=== PATIENT | male | born 1960 | race American Indian/Alaskan Native ===

== ENCOUNTER 2021-01-21 23:19 | Inpatient (IN) | payer OTHER ==
[2021-01-21] MEDS ORDERED: ALBUTEROL 2.5 MG/3 ML NEBU IH ONE ×2 (23:20→23:33)
[2021-01-21] MEDS ORDERED: IPRATROPIUM 0.02% NEBU 2.5 ML IH ONE ×2 (23:20→23:33)
--- NOTE | 2021-01-21 23:38 | Emergency Department Report ---
ED Shortness of Breath HPI - General Chief Complaint: Adult Asthma Stated Complaint: AIMEE Time Seen by Provider: 01/21/21 23:19 Source: patient, EMS Mode of arrival: Stretcher Limitations: No Limitations - History of Present Illness Initial Comments: Patient is a 60-year-old male who presents emergency room with complaints of difficulty breathing and shortness of breath. Patient does have an asthma attack. Patient states it started 2 hours ago. He states been taking it nebulizers at home is not working. Patient brought in by EMS. Report received milligrams per EMS states that the patient oxygen saturation was 87% on room air. Patient unable to tolerate nonrebreather due to feeling suffocated. Patient given Solu-Medrol and a magnesium drip of 2 g by EMS. Patient states she still having severe difficulty breathing. Patient states symptoms are now improved. Patient states he prefers not to be intubated and does not like BiPAP. Patient states he will use BiPAP. Patient states he has been intubated in the past. MD Complaint: shortness of breath, "asthma attack" -: Sudden Severity: severe Consistency: constant Improves With: rest Worsens With: exertion Known History Of: asthma Treatments Prior to Arrival: oxygen, bronchodilator, other (Solu-Medrol 125 mg and magnesium 2 g) - Related Data Home Oxygen Therapy: No Allergies Allergy/AdvReac Type Severity Reaction Status Date / Time No Known Allergies Allergy Unverified 01/21/21 23:29 ED Review of Systems ROS: Stated complaint: AIMEE Other details as noted in HPI Constitutional: denies: chills, fever Eyes: denies: eye pain, eye discharge, vision change ENT: denies: ear pain, throat pain Respiratory: shortness of breath, SOB with exertion, SOB at rest, wheezing. denies: cough Cardiovascular: denies: chest pain, palpitations Endocrine: no symptoms reported Gastrointestinal: denies: abdominal pain, nausea, diarrhea Genitourinary: denies: urgency, dysuria Musculoskeletal: denies: back pain, joint swelling, arthralgia Skin: denies: rash, lesions Neurological: denies: headache, weakness, paresthesias Psychiatric: denies: anxiety, depression Hematological/Lymphatic: denies: easy bleeding, easy bruising ED Past Medical Hx - Past Medical History Previous Medical History?: Yes Hx Asthma: Yes (Patient has been intubated twice in the past) - Family History Family history: no significant - Social History Smoking Status: Never Smoker Substance Use Type: None ED Physical Exam - General General appearance: alert, anxious, in distress - Head Head exam: Present: atraumatic, normocephalic - Eye Eye exam: Present: normal appearance - ENT ENT exam: Present: mucous membranes dry - Neck Neck exam: Present: normal inspection - Respiratory Respiratory exam: Present: respiratory distress, accessory muscle use, decreased breath sounds - Cardiovascular Cardiovascular Exam: Present: regular rate, normal rhythm. Absent: systolic murmur, diastolic murmur, rubs, gallop - GI/Abdominal GI/Abdominal exam: Present: soft, normal bowel sounds - Rectal Rectal exam: Present: deferred - Extremities Exam Extremities exam: Present: normal inspection - Back Exam Back exam: Present: normal inspection - Neurological Exam Neurological exam: Present: alert, oriented X3 - Psychiatric Psychiatric exam: Present: normal affect, normal mood - Skin Skin exam: Present: warm, dry, intact, normal color. Absent: rash ED Course Vital Signs 01/21/21 01/21/21 01/21/21 23:21 23:30 23:46 Temperature 97.7 F Pulse Rate 125 H 124 H 128 H Pulse Rate [ 122 H Posterior Bilateral Throughout] Respiratory 28 H 22 28 H Rate Respiratory 26 H Rate [Posterior Bilateral Throughout] Blood Pressure 178/104 178/104 166/104 O2 Sat by Pulse 92 97 100 Oximetry 01/22/21 01/22/21 01/22/21 00:00 00:16 00:30 Temperature Pulse Rate 123 H 116 H 116 H Pulse Rate [ Posterior Bilateral Throughout] Respiratory 20 18 20 Rate Respiratory Rate [Posterior Bilateral Throughout] Blood Pressure 166/104 144/96 134/94 O2 Sat by Pulse 100 99 99 Oximetry 01/22/21 01/22/21 01/22/21 00:31 00:46 01:00 Temperature Pulse Rate 111 H 111 H Pulse Rate [ 116 H Posterior Bilateral Throughout] Respiratory 19 19 Rate Respiratory 26 H Rate [Posterior Bilateral Throughout] Blood Pressure 145/94 149/99 O2 Sat by Pulse 99 99 Oximetry 01/22/21 01/22/21 01/22/21 01:16 01:30 01:46 Temperature Pulse Rate Pulse Rate [ Posterior Bilateral Throughout] Respiratory Rate Respiratory Rate [Posterior Bilateral Throughout] Blood Pressure 150/104 143/96 142/105 O2 Sat by Pulse 99 97 98 Oximetry 01/22/21 01/22/21 01/22/21 01:57 02:00 02:11 Temperature Pulse Rate Pulse Rate [ 107 H Posterior Bilateral Throughout] Respiratory 22 Rate Respiratory 21 Rate [Posterior Bilateral Throughout] Blood Pressure 138/100 O2 Sat by Pulse 99 99 Oximetry 01/22/21 01/22/21 01/22/21 02:16 02:30 02:46 Temperature Pulse Rate 100 H 99 H Pulse Rate [ Posterior Bilateral Throughout] Respiratory 19 19 Rate Respiratory Rate [Posterior Bilateral Throughout] Blood Pressure 133/101 127/93 133/100 O2 Sat by Pulse 98 98 97 Oximetry 01/22/21 01/22/21 01/22/21 03:00 03:16 03:30 Temperature Pulse Rate 110 H 101 H 94 H Pulse Rate [ Posterior Bilateral Throughout] Respiratory 17 20 20 Rate Respiratory Rate [Posterior Bilateral Throughout] Blood Pressure 141/97 151/96 137/91 O2 Sat by Pulse 96 98 96 Oximetry 01/22/21 01/22/21 01/22/21 03:46 04:00 04:16 Temperature Pulse Rate 94 H 95 H 95 H Pulse Rate [ Posterior Bilateral Throughout] Respiratory 17 18 18 Rate Respiratory Rate [Posterior Bilateral Throughout] Blood Pressure 133/85 135/99 134/82 O2 Sat by Pulse 96 96 94 Oximetry 01/22/21 04:30 Temperature Pulse Rate 92 H Pulse Rate [ Posterior Bilateral Throughout] Respiratory 19 Rate Respiratory Rate [Posterior Bilateral Throughout] Blood Pressure 135/77 O2 Sat by Pulse 93 Oximetry - Reevaluation(s) Reevaluation #1: Patient arrived via EMS. Report received from EMS. Patient will be placed on BiPAP and given a DuoNeb treatment. 01/21/21 23:27 Reevaluation #2: Patient is now wheezing. Patient had a silent chest before. Patient has received a DuoNeb. Patient will be placed on BiPAP if he can tolerate it. Patient will also be given hour-long albuterol and DuoNeb treatment 01/21/21 23:31 Reevaluation #3: Patient's work to breathe has improved since being on BiPAP. Patient is tolerating BiPAP. Patient's lung sounds are improving. Patient is wheezing is better. Patient is taking a deep breath with BiPAP. Patient states he is feeling better. 01/22/21 00:17 Reevaluation #4: I discussed all results with patient. I discussed plan of care with patient. Patient agrees with plan of care and admission. Patient to be admitted to the hospitalist service. 01/22/21 01:57 - Consultations Consultation #1: Hospitalist consulted for admission. Hospitalist to admit patient. 01/22/21 02:02 ED Medical Decision Making - Lab Data Result diagrams: 01/22/21 01:03 01/22/21 01:03 - Radiology Data Radiology results: report reviewed, image reviewed interpreted by me: Chest x-ray: No pneumonia, no pneumothorax, no foreign body, no osseous finding s, no acute findings - Medical Decision Making Patient is a 60-year-old male who presents emergency room with complaints of difficulty breathing and respiratory distress shortness of breath. Patient oxygen level below 88 initial evaluation. Patient placed on oxygen and given a DuoNeb. Patient needed BiPAP with patient patient was unable to tolerate and after a an hour-long albuterol patient able to tolerate BiPAP. Patient's increased work of breathing and respiratory distress improved with BiPAP. Patient was given Solu-Medrol and magnesium run by EMS prior to arrival. Patient had labs done which were essentially unremarkable except for elevated WBC. The WBC elevation is most likely secondary to Solu-Medrol that was given by EMS prior to arrival. Patient responded well to treatment. Patient required multiple reevaluations and medications. Patient still requiring BiPAP. Patient admitted to the hospital service for further evaluation treatment and to the IMCU. Critical care time documented due to the multiple reassessments, prolonged time at the bedside, interpretation of diagnostics and labs. - Differential Diagnosis Status asthmaticus, shortness of breath, hypoxia, respiratory failure Critical Care Time: Yes Critical care time in (mins) excluding proc time.: 35 Critical care attestation.: If time is entered above; I have spent that time in minutes in the direct care of this critically ill patient, excluding procedure time. Critical Care Time: 35 minutes ED Disposition Clinical Impression: SOB (shortness of breath) Status asthmaticus Qualifiers: Asthma severity: severe Asthma persistence: persistent Qualified Code(s): J45.52 - Severe persistent asthma with status asthmaticus Respiratory failure Qualifiers: Chronicity: acute Respiratory failure complication: hypoxia Qualified Code(s): J96.01 - Acute respiratory failure with hypoxia Disposition: OP ADMIT IP TO THIS HOSP Is pt being admited?: Yes Does the pt Need Aspirin: No Condition: Critical Time of Disposition: 02:05
[2021-01-21] MEDS ORDERED: IPRATROPIUM/ALBUTEROL SULFATE 3 ML AMPUL.NEB IH ONE (23:41)
[2021-01-22] MEDS ORDERED: IPRATROPIUM 0.02% NEBU 2.5 ML IH ONE ×3 (00:16→06:23)
[2021-01-22 00:28] LABS: ABG HCO3 21.5 mmol/L (20.0-26.0); ABG Methemoglobin 0.6 % (0.0-1.5); ABG Oxygen Saturation 99.3 % (95.0-99.0); ABG PCO2 33.2 mm Hg; ABG PH 7.429 pH Units (7.350-7.450); ABG PO2 209.4 mm Hg (80.0-90.0)
--- NOTE | 2021-01-22 01:01 | XRay Report ---
CHEST 1 VIEW INDICATION: Asthma. COMPARISON: None FINDINGS: SUPPORT DEVICES: None. HEART: Within normal limits. LUNGS/PLEURA: No acute air space or interstitial disease. ADDITIONAL FINDINGS: None. IMPRESSION: 1. No acute findings. Signer Name: Estevan Amezquita MD Signed: 01/22/2021 12:56 AM Workstation Name: [id number]
[2021-01-22 01:21] LABS: Hematocrit 41.4 % (35.5-45.6); Hemoglobin 13.9 gm/dl (11.8-15.2); Mean Corpuscular HGB Conc 34 % (32-34); Mean Corpuscular Volume 93 fl (84-94); Platelet Count 227 K/mm3 (140-440); Red Blood Count 4.47 M/mm3 (3.65-5.03); Red Cell Distribution Width 13.2 % (13.2-15.2)
[2021-01-22 01:40] LABS: Alanine Aminotransferase 26 units/L (7-56); Albumin 4.3 g/dL (3.9-5); BUN/Creatinine Ratio 16; Blood Urea Nitrogen 16 mg/dL (9-20); Calcium 8.9 mg/dL (8.4-10.2); Hemolysis Index 7
[2021-01-22] MEDS ORDERED: ALBUTEROL 2.5 MG/3 ML NEBU IH ONE ×4 (02:03→06:23)
[2021-01-22] MEDS ORDERED: MAGNESIUM HYDROXIDE (MOM) ORAL LIQD UDC PO PRN (02:35)
[2021-01-22] MEDS ORDERED: ONDANSETRON 4 MG/2 ML INJ IV PRN (02:35)
[2021-01-22] MEDS ORDERED: ACETAMINOPHEN 325 MG TAB PO PRN (02:35)
[2021-01-22] MEDS ORDERED: MORPHINE 2 MG/1 ML INJ IV PRN (02:35)
--- NOTE | 2021-01-22 02:49 | History and Physical Report ---
History of Present Illness Date of examination: 01/22/21 Date of admission: 01/22/21 02:04 Chief complaint: Shortness of breath History of present illness: 60-year-old -[place] male with known history of asthma presenting to the emergency room today complaining of difficulty breathing and shortness of breath. This has been ongoing for about 2 hours prior to reporting to the emergency room. Patient has used his inhalers and nebulizing treatment without any significant improvement. Was subsequently brought to the emergency room by EMS . Oxygen saturation in route to the hospital was about 87% on room air and patient was said to be unable to tolerate the nonrebreather. Patient was given Solu-Medrol and IV magnesium . Patient was subsequently able to tolerate BiPAP upon arrival in the emergency room. Patient denies any fever or chills, no headache or dizziness, no nausea vomiting, no chest pain, no abdominal pain, no hematuria or dysuria. He denies any sick contacts and no recent travel. Denies any contact with anyone with COVID-19. Work-up in the emergency room reveals leukocytosis of 17, chest x-ray was unremarkable. Patient is being admitted with for asthma exacerbation with hypoxia. Past History Past Medical History: other (Asthma) Past Surgical History: No surgical history Social history: no significant social history Family history: no significant family history Medications and Allergies Allergies Allergy/AdvReac Type Severity Reaction Status Date / Time No Known Allergies Allergy Unverified 01/21/21 23:29 Active Meds: Active Medications Acetaminophen (Acetaminophen 325 Mg Tab) 650 mg PO Q6H PRN PRN Reason: Pain MILD(1-3)/Fever >100.5/TORRES Albuterol/Ipratropium (Ipratropium/Albuterol Sulfate 3 Ml Ampul.Neb) 1 ampul IH Q6HRT ANGELINA Enoxaparin Sodium (Enoxaparin 40 Mg/0.4 Ml Inj) 40 mg SUB-Q QDAY@2200 ANGELINA; Protocol Magnesium Hydroxide (Magnesium Hydroxide (Mom) Oral Liqd Udc) 30 ml PO Q4H PRN PRN Reason: Constipation Methylprednisolone Sodium Succinate (Methylprednisolone Sod Succinate 40 Mg/1 Ml Inj) 40 mg IV Q8HR ANGELINA Morphine Sulfate (Morphine 2 Mg/1 Ml Inj) 2 mg IV Q4H PRN PRN Reason: Pain, Moderate (4-6) Ondansetron HCl (Ondansetron 4 Mg/2 Ml Inj) 4 mg IV Q8H PRN PRN Reason: Nausea And Vomiting Sodium Chloride (Sodium Chloride 0.9% 10 Ml Flush Syringe) 10 ml IV BID ANGELINA Sodium Chloride (Sodium Chloride 0.9% 10 Ml Flush Syringe) 10 ml IV PRN PRN PRN Reason: LINE FLUSH Review of Systems Constitutional: no fever, no chills Ears, nose, mouth and throat: no nasal congestion, no sore throat Cardiovascular: no chest pain, no palpitations Respiratory: shortness of breath, wheezing, no cough Gastrointestinal: no abdominal pain, no nausea, no vomiting, no diarrhea Genitourinary Male: no dysuria, no hematuria, no flank pain, no nocturia Musculoskeletal: no neck pain, no low back pain Integumentary: no rash, no pruritis Neurological: no headaches, no confusion Psychiatric: no anxiety, no depression Endocrine: no polyphagia, no polydipsia, no polyuria, no nocturia Exam - Constitutional Vitals: Temp Pulse Resp BP Pulse Ox 97.7 F 107 H 21 178/104 99 01/21/21 23:21 01/22/21 02:11 01/22/21 02:11 01/21/21 23:21 01/22/21 01:57 General appearance: Present: severe distress, well-nourished - EENT Eyes: Present: PERRL, EOM intact. Absent: scleral icterus ENT: hearing intact, clear oral mucosa, dentition normal - Neck Neck: Present: supple, normal ROM - Respiratory Respiratory effort: labored Respiratory: bilateral: wheezing - Cardiovascular Rhythm: regular Heart Sounds: Present: S1 & S2. Absent: gallop, systolic murmur, diastolic murmur, rub, click - Extremities Extremities: no ischemia, pulses intact, pulses symmetrical, No edema, Full ROM Peripheral Pulses: within normal limits - Abdominal General gastrointestinal: Present: soft, non-tender, non-distended, normal bowel sounds. Absent: mass - Integumentary Integumentary: Present: clear, warm, dry. Absent: rash - Musculoskeletal Musculoskeletal: strength equal bilaterally - Psychiatric Psychiatric: appropriate mood/affect, intact judgment & insight, memory intact, cooperative - Neurologic Neurologic: CNII-XII intact, no focal deficits, moves all extremities Results - Labs CBC & Chem 7: 01/22/21 01:03 01/22/21 01:03 Labs: Abnormal lab results 01/22/21 01/22/21 01/22/21 Range/Units 00:15 01:03 01:03 WBC 17.0 H (4.5-11.0) K/mm3 ABG pO2 209.4 H (80.0-90.0) mm Hg ABG O2 Saturation 99.3 H (95.0-99.0) % ABG Hemoglobin 13.9 L (14.0-18.0) gm/dl Glucose 192 H (75-100) mg/dL Assessment and Plan - Patient Problems (1) Status asthmaticus Current Visit: Yes Status: Acute Qualifiers: Asthma severity: severe Asthma persistence: persistent Qualified Code(s): J45.52 - Severe persistent asthma with status asthmaticus Plan to address problem: Patient placed on nebulizing treatments and IV steroid. He has been intubated in the past for asthma exacerbation. Patient currently doing well on BiPAP We will place consult to pulmonology for evaluation and recommendations. (2) Respiratory failure Current Visit: Yes Status: Acute Qualifiers: Chronicity: acute Respiratory failure complication: hypoxia Qualified Code(s): J96.01 - Acute respiratory failure with hypoxia Plan to address problem: Secondary to the asthma exacerbation. We will await pulmonology evaluation. (3) Leukocytosis Current Visit: Yes Status: Acute Plan to address problem: Possibly secondary to steroid use. However we will place on empiric IV antibiotics for possible underlying bronchitis. We will monitor CBC. (4) DVT prophylaxis Current Visit: Yes Status: Acute Plan to address problem: Patient placed on subcutaneous Lovenox. (5) Full code status Current Visit: Yes Status: Acute Plan to address problem: Patient is a full code.
[2021-01-22] MEDS ORDERED: IPRATROPIUM/ALBUTEROL SULFATE 3 ML AMPUL.NEB IH ONE (04:31)
[2021-01-22 04:40] LABS: Total Cells Counted 100
[2021-01-22 04:42] LABS: Anisocytosis 1+; Platelet Estimate Consistent w Auto
[2021-01-22] MEDS: methylPREDNISolone Sod Succinate 40 MG/1 ML INJ IV SCH ×2 (06:38→14:00)
[2021-01-22] MEDS ORDERED: IPRATROPIUM/ALBUTEROL SULFATE 3 ML AMPUL.NEB IH SCH (08:00)
[2021-01-22] MEDS ORDERED: CETIRIZINE 10 MG TAB PO SCH (12:00)
--- NOTE | 2021-01-22 12:12 | Discharge Summary ---
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 This has been ongoing for about 2 hours prior to reporting to the emergency room. Oxygen saturation in route to the hospital was about 87% on room air and patient was said to be unable to tolerate the nonrebreather. Patient was given Solu-Medrol and IV magnesium . Patient was subsequently able to tolerate BiPAP upon arrival in the emergency room. Work-up in the emergency room reveals leukocytosis of 17, chest x-ray was unremarkable. Patient was admitted with for asthma exacerbation with hypoxemic respiratory failure. Patient was admitted to medical floor with scheduled nebs, iv abx, iv steroids and supplemental O2 to keep O2 sat at 94%. CXR showed no infiltrates. Patients symptom improved with medical management. Patient then decided to leave the hospital and wanted to follow-up with his PCP as outpatient. Patient was recommended to stay at least overnight to make sure his symptom has stabilized but he refused to do so. Patient was then discharged home in stable condition with outpt f/u. Disposition: TO HOME OR SELFCARE Final Discharge Diagnosis (Prints w/discharge instructions): Status asthmaticus. Acute hypoxic respiratory failure resolved,. SIRS with leukocytosis tachycardia tachypnea due to acute asthma exacerbation. Acute bronchitis Time spent for discharge: 34 minutes Core Measure Documentation - Palliative Care Palliative Care/ Comfort Measures: Not Applicable - Core Measures Any of the following diagnoses?: none Exam - Physical Exam Narrative exam: GENERAL: well-developed and well-nourished elderly -[place] male lying on bed appeared to be in no discomfort. HEENT: Normocephalic. Atraumatic. No conjunctival congestion or icterus. Patient has moist mucous membranes. NECK: Supple. Trachea midline. CHEST/LUNGS: Clear to auscultated bilaterally, breathing nonlabored. No wheezes crackles or rhonchi. HEART/CARDIOVASCULAR: Regular in rate and rhythm. S1 and S2 positive. ABDOMEN: Abdomen is soft, nontender. Patient has normal bowel sounds. SKIN: There is no rash. Warm and dry. NEURO: No focal motor deficit. Follows command. MUSCULOSKELETAL: No joint effusion or tenderness. EXTRIMITY: No edema, no cyanosis or clubbing. PSYCH: Cooperative. - Constitutional Vitals: Temp Pulse Resp BP Pulse Ox 97.7 F 94 H 18 132/82 94 01/21/21 23:21 01/22/21 11:00 01/22/21 11:00 01/22/21 11:00 01/22/21 11:00 Plan Activity: advance as tolerated Weight Bearing Status: Weight Bear as Tolerated Diet: low fat, low salt Follow up with: PRIMARY CARE, [Primary Care Provider] - 3-5 Days Forms: Work/School Release Form(ED) Prescriptions: Prednisone [predniSONE 10 mg (6-Day Pack, 21 Tabs)] 10 mg PO .TAPER #1 tab.ds.pk Azithromycin [Zithromax] 250 mg PO DAILY #4 tablet
[2021-01-22 14:54] VITALS: BP 134/84
[2021-01-22] MEDS ORDERED: ENOXAPARIN 40 MG/0.4 ML INJ SUB-Q SCH (22:00)
== END 2021-01-22 14:55 | disposition home or self-care (01) | DRG 189 ==
LOC: ED 23:19 → IMCU 01-22 02:04 → CC1 01-22 05:58 → 3A 01-22 11:05
PROVIDERS: ADMIT Internal Medicine Geriatric Medicine; ATTEND Internal Medicine
PROC: 5A09357 Assistance with Respiratory Ventilation, Less than 24 Consecutive Hours, Continuous Positive Airway Pressure (ICD-10-PCS; principal; 2021-01-21)
PROC: 4A033R1 Measurement of Arterial Saturation, Peripheral, Percutaneous Approach (ICD-10-PCS; 2021-01-22)
DX: J96.01 Acute respiratory failure with hypoxia (principal); R65.10 Systemic inflammatory response syndrome (SIRS) of non-infectious origin without acute organ dysfunction; J45.52 Severe persistent asthma with status asthmaticus; J20.9 Acute bronchitis, unspecified; D72.829 Elevated white blood cell count, unspecified; R00.0 Tachycardia, unspecified
CPT/HCPCS: 36415; 71045; 80053; 82803; 85007; 85025; 94644; 96374; 96375; G0378; J1956; J2920